=== PATIENT | male | born 1980 | race Caucasian/White ===

== ENCOUNTER 2019-04-23 17:50 | Emergency (ER) | payer OTHER ==
[~2019-04-23] VITALS: Ht 182.9 cm; Wt 117.9 kg
[~2019-04-23 17:50] MED LIST: BACTRIM DS TAB1 EACH PO; CLEOCIN HCL150 MG PO; FLOMAX0.4 MG PO; IBUPROFEN 800800 MG PO; NOHOMEMEDICATIONS; PERCOCET 5-3251 EACH PO
[2019-04-23 18:21] LABS: URINE BILIRUBIN NEGATIVE (Negative); URINE BLOOD 3+ (Negative); URINE CLARITY CLEAR; URINE COLOR YELLOW; URINE GLUCOSE-RANDOM* NEGATIVE (Negative); URINE KETONES NEGATIVE (Negative); URINE LEUKOCYTES-REFLEX TRACE (Negative); URINE NITRITE-REFLEX NEGATIVE (Negative); URINE PROTEIN (DIPSTICK) TRACE (Negative); URINE SPECIFIC GRAVITY 1.025 (1.005-1.035); URINE UROBILINOGEN 0.2 E.U./dl (0.2-1.0)
[2019-04-23 18:28] LABS: BACTERIA-REFLEX None Seen /HPF (None Seen); CRYSTALS None Seen /LPF (None Seen); SQUAMOUS None Seen /LPF (0-3); URINE RBC >20 Many /HPF (0-2); URINE WBC-REFLEX None Seen /HPF (0-5)
[2019-04-23 18:52] LABS: ABSOLUTE NEUTROPHILS 6.8 thou/uL (1.4-8.2); BASOPHILS 0.8 % (0.0-2.0); EOSINOPHILS 2.6 % (0.0-3.0); HEMATOCRIT 46.1 % (42.0-52.0); HEMOGLOBIN 15.7 gm/dL (14.0-18.0); LYMPHOCYTES 28.3 % (24.0-44.0); MCH 29.8 pg (26.0-34.0); MCHC 34.1 g/dL (28.0-37.0); MCV 87.4 fL (80.0-100.0); MONOCYTES 7.8 % (1.0-8.0); PLATELET COUNT 222 thou/uL (150-400); POLYS 60.5 % (36.0-66.0); RBC 5.28 mil/uL (4.50-6.00); RDW 13.2 % (10.5-14.5); WBC 11.2 thou/uL (4.0-11.0)
[2019-04-23 18:59] LABS: CALCIUM 9.2 mg/dL (8.5-10.1); POTASSIUM 4.1 mmol/L (3.5-5.1)
[2019-04-23] MEDS ORDERED: NORCO 5-325 TA1 EAC1 PO (19:54)
[2019-04-23 20:10] VITALS: BP 120/72
== END 2019-04-23 20:16 | disposition home or self-care (01) ==
LOC: ER 17:50
PROVIDERS: Emergency Medicine; Physician Assistant
DX: N20.0 Calculus of kidney (principal); F17.210 Nicotine dependence, cigarettes, uncomplicated; Z88.2 Allergy status to sulfonamides; Z88.8 Allergy status to other drugs, medicaments and biological substances